=== PATIENT | female | born 1995 | race American Indian/Alaskan Native ===

== ENCOUNTER 2017-06-16 11:09 | Emergency (ER) | payer SELFPAY ==
[2017-06-16 11:51] VITALS: BP 115/61
[2017-06-16 12:44] LABS: HCG Qualitative,Urine Negative (Negative)
[2017-06-16 12:46] LABS: Bilirubin,Urine NEG (Negative); Blood,Urine NEG (Negative); Color,Urine Yellow (Yellow); Mucus,Urine 2+ /HPF; Nitrite,Urine NEG (Negative); Protein,Urine <15 mg/dL mg/dL (Negative)
== END 2017-06-16 14:30 | disposition left against medical advice (07) ==
LOC: ED 11:09
DX: R10.9 Unspecified abdominal pain (principal); Z53.21 Procedure and treatment not carried out due to patient leaving prior to being seen by health care provider
CPT/HCPCS: 81001; 81025